=== PATIENT | female | born 1950 | race Caucasian/White ===

== ENCOUNTER 2019-06-05 06:29 | Emergency (ER) | payer MEDICARE, SELFPAY ==
[2019-06-05 06:37] VITALS: BP 150/80; PULSE 74; RESP 18; TEMP 36.6; O2SAT 99
[2019-06-05] MEDS: SODIUM CHLORIDE 0.9% 1,000 ML 1000 ML IV (06:55)
[2019-06-05] MEDS: ONDANSETRON 4 MG/2 ML INJ IV (06:56)
--- NOTE | 2019-06-05 06:56 | DI.US.S_ITS ---
PROCEDURE: US ABDOMEN LIMITED INDICATIONS: PAIN TECHNIQUE: Real-time focused scanning was performed of the right upper quadrant of the abdomen, with image documentation. COMPARISON: None. FINDINGS: Numerous small mobile gallstones. There is no gallbladder wall thickening or fluid around the gallbladder or sonographic Haile sign. There are 2 focal echogenic lesions in the liver, likely representing hemangiomas. In the right lobe is a 2.7 cm maximum diameter lesion. In the left lobe is a 2.1 x 1.6 x 3.0 cm echogenic lesion. Visualized portions of the pancreas are unremarkable. Common bile duct is nondilated, measuring 5 mm. IMPRESSION: 1. Cholelithiasis. 2. Probable liver hemangiomata. Dictated by: Venancio Gary M.D. on 06/05/2019 at 8:24 Approved by: Venancio Gary M.D. on 06/05/2019 at 8:26
[2019-06-05 06:59] LABS: Hematocrit 43.3 % (36-46); Hemoglobin 14.7 g/dL (12.0-16.0); Mean Corpuscular Hemoglobin 33.2 PG (26-34); Mean Corpuscular Volume 97.5 fL (80-100); Platelet Count 315 X10^3/uL (150-400); Red Blood Cell Count 4.44 X10^6/uL (4.0-5.2); Red Cell Distribution Width 13.1 % (11.6-14.8); White Blood Cell Count 7.8 X10^3/uL (4.5-11.0)
--- NOTE | 2019-06-05 06:59 | ED.ABDPAIN ---
HPI - Abdominal Pain <Marcia Ortiz MD - Last Filed: 06/08/19 17:28> General Chief Complaint: Abdominal Pain Stated Complaint: VOMITING STOMACH PAIN Time Seen by Provider: 06/05/19 06:47 Source: patient Mode of arrival: ambulatory Limitations: no limitations History of Present Illness HPI narrative: Patient presents emergency department complaining of upper abdominal pain that started last night around 2300. Patient states it did start a couple of hours after eating a meal. Patient had had an episode of watery diarrhea earlier that afternoon, but had otherwise felt okay. She states that after the abdominal pain began, she began to feel nauseated and shortly thereafter began vomiting. Patient states that she vomited a number of times, and till her stomach was empty. She states she still feels nauseated, to the point that she has been putting her fingers down her throat to try to make herself vomit so she can feel better. However, she states she has not had any further vomiting for the last couple of hours. Patient states the pain is located in her epigastrium and slightly to the left and right side as well. She states that she had 1 other pair of episodes like this about 8 years ago, at which time she was admitted to the hospital and worked up with laboratory studies and upper abdominal ultrasound, all of which were unremarkable. Patient states she has not had any other episodes of this character leading up to today. She states her only abdominal surgeries have been and a hysterectomy in which her ovaries were left. Patient denies any blood in her stool or vomit. No dysuria. She has no history of peptic ulcer disease. Patient denies chest pain, shortness of breath, or cough. She states it does hurt in her upper abdomen when she takes deep breath. Patient denies any fevers. No other complaints at this time. Related Data Previous Rx's Medication Instructions Recorded ondansetron 4 mg PO Q6H PRN #20 tab 06/05/19 ranitidine HCl [Zantac] 150 mg PO BID PRN #60 tab 06/05/19 tramadol [Ultram] 50 mg PO BID PRN #14 tab 06/05/19 Allergies Allergy/AdvReac Type Severity Reaction Status Date / Time No Known Drug Allergies Allergy Verified 06/05/19 08:21 Review of Systems <Marcia Ortiz MD - Last Filed: 06/08/19 17:28> Constitutional Denies chills, Denies fever(s), Denies lethargy and Denies weakness Eyes Denies change in vision, Denies eye discharge, Denies irritation and Denies loss of vision ENT Ears, Nose, Mouth, and Throat: Denies change in voice, Denies neck pain and Denies sore throat Cardiovascular Denies chest pain, Denies irregular heart rhythm, Denies lightheadedness, Denies palpitations, Denies dyspnea, Denies dyspnea on exertion and Denies orthopnea Respiratory Denies cough, Denies dyspnea, Denies dyspnea on exertion and Denies wheezing Gastrointestinal Gastrointestinal: Reports abdominal pain, Denies change in bowel habits, Reports diarrhea, Reports nausea and Reports vomiting Genitourinary Denies hematuria, Denies flank pain, Denies urinary incontinence and Denies urinary urgency Musculoskeletal Denies neck pain Integumentary/Breasts Denies pruritus, Denies erythema, Denies rash and Denies wounds Neurologic Denies confusion, Denies loss of vision and Denies weakness Psychiatric Denies anxiety, Denies confusion, Denies depression, Denies homicidal ideation and Denies suicidal ideation Endocrine Denies palpitations Hematologic/Lymphatic Denies easy bruising Allergic/Immunologic Denies wheezing PFSH <Marcia Ortiz MD - Last Filed: 06/08/19 17:28> Medical History Anxiety (Acute) Surgical History No pertinent past surgical history (Acute) Social History Smoking Status: Former smoker Social History Smoking Status: Former smoker Exam <Marcia Ortiz MD - Last Filed: 06/08/19 17:28> Initial Vital Signs Initial Vital Signs: Vital Signs Temperature 98 F 06/05/19 06:37 Pulse Rate 74 06/05/19 06:37 Respiratory Rate 18 06/05/19 06:37 Blood Pressure 150/80 H 06/05/19 06:37 Pulse Oximetry 99 06/05/19 06:37 Const General: cooperative and well developed Nutritional Appearance: well nourished Orientation: alert, awake, oriented x3 and not confused Other: Patient is slightly diaphoretic and appears uncomfortable, holding her abdomen, grimacing, and shifting position frequently. [facility] Head: normocephalic and atraumatic Ears: external ears normal Nose: external nose normal and No nasal discharge Face and sinus: face symmetric and No dry mucous membranes Mouth: oral mucosae normal and moist mucous membranes Teeth and gingiva: dentition normal Eyes General: appearance normal, both eyes and all related structures Eyelids: eyelids normal Conjunctivae: conjunctivae normal Sclera: sclerae normal Pupils: PERRL EOM: EOM intact bilaterally Neck Neck: normal visual inspection, trachea midline, No lymphadenopathy, No midline deformity and No JVD Lymphatic: No lymphedema Chest Chest: normal inspection of the chest Resp Effort & Inspection: normal respiratory effort, able to speak in complete sentences, no respiratory distress and no use of accessory muscles Auscultation: clear to auscultation bilaterally, no rales, no rhonchi and no wheezes Cardio Rate: regular rate Rhythm: regular rhythm Heart Sounds: no click, no gallops, no murmurs and no rubs Pulses: normal peripheral pulses GI Inspection: non-distended Palpation: soft, no hepatosplenomegaly, No guarding, No pulsatile mass and tender (Mild, epigastrium; states makes her feel more nauseated.) Back/Spine/Pelvis Back: No CVA tenderness Cervical Spine: cervical ROM normal and No pain with cervical ROM Thoracic/Lumbar Spine: thoracic and lumbar spine normal to inspection Skin General: no rashes or lesions noted, No jaundice and No petechiae Other: Mild diaphoresis. Neuro General: alert, oriented x3, gait normal and no focal motor deficits Speech: speech normal Extrem General: full ROM, no clubbing, cyanosis or edema, no pedal edema and no calf tenderness Psych Appearance: well kempt Mental Status: mental status grossly normal Attitude: cooperative Thought Content: normal and suicidality Judgment: judgment good <Roverto Díaz DO - Last Filed: 06/05/19 09:38> Initial Vital Signs Initial Vital Signs: Vital Signs Temperature 98 F 06/05/19 06:37 Pulse Rate 74 06/05/19 06:37 Respiratory Rate 18 06/05/19 06:37 Blood Pressure 150/80 H 06/05/19 06:37 Pulse Oximetry 99 06/05/19 06:37 Course <Marcia Ortiz MD - Last Filed: 06/08/19 17:28> Course Narrative: Patient was worked up with laboratory studies and ultrasound of the abdomen, and treated with IV fluids, Zofran, and Dilaudid. She was signed out to Dr. Roverto Díaz at change of shift, pending diagnostic workup and re-evaluation after symptomatic treatment. Orders Ordered: Discontinued Medications Hydromorphone HCl (Dilaudid) 0.5 mg IV NOW ONE Stop: 06/05/19 06:57 Last Admin: 06/05/19 07:07 Dose: 0.5 mg Hydromorphone HCl (Dilaudid) 1 mg IV NOW ONE Stop: 06/05/19 08:48 Last Admin: 06/05/19 09:11 Dose: 1 mg Sodium Chloride (Normal Saline 0.9%) 1,000 mls @ 1,000 mls/hr IV BOLUS ONE Stop: 06/05/19 07:48 Last Infusion: 06/05/19 08:00 Dose: 0 mls/hr Admin: 06/05/19 06:55 Dose: 1,000 mls/hr Ketorolac Tromethamine (Toradol) 15 mg IV NOW ONE Stop: 06/05/19 08:19 Last Admin: 06/05/19 08:23 Dose: 15 mg Metoclopramide HCl (Reglan) 10 mg IV NOW ONE Stop: 06/05/19 07:45 Last Admin: 06/05/19 07:53 Dose: 10 mg Ondansetron HCl (Zofran) 4 mg IV NOW ONE Stop: 06/05/19 06:51 Last Admin: 06/05/19 06:56 Dose: 4 mg Pantoprazole Sodium (Protonix) 40 mg IV NOW ONE Stop: 06/05/19 07:45 Last Admin: 06/05/19 07:53 Dose: 40 mg Vital Signs - 8 hr 06/05/19 06:37 06/05/19 07:10 Temperature 98 F Pulse Rate 74 76 Respiratory Rate 18 22 Blood Pressure 150/80 H Pulse Oximetry 99 100 <Roverto Díaz DO - Last Filed: 06/05/19 09:38> Orders Ordered: Discontinued Medications Hydromorphone HCl (Dilaudid) 0.5 mg IV NOW ONE Stop: 06/05/19 06:57 Last Admin: 06/05/19 07:07 Dose: 0.5 mg Hydromorphone HCl (Dilaudid) 1 mg IV NOW ONE Stop: 06/05/19 08:48 Last Admin: 06/05/19 09:11 Dose: 1 mg Sodium Chloride (Normal Saline 0.9%) 1,000 mls @ 1,000 mls/hr IV BOLUS ONE Stop: 06/05/19 07:48 Last Infusion: 06/05/19 08:00 Dose: 0 mls/hr Admin: 06/05/19 06:55 Dose: 1,000 mls/hr Ketorolac Tromethamine (Toradol) 15 mg IV NOW ONE Stop: 06/05/19 08:19 Last Admin: 06/05/19 08:23 Dose: 15 mg Metoclopramide HCl (Reglan) 10 mg IV NOW ONE Stop: 06/05/19 07:45 Last Admin: 06/05/19 07:53 Dose: 10 mg Ondansetron HCl (Zofran) 4 mg IV NOW ONE Stop: 06/05/19 06:51 Last Admin: 06/05/19 06:56 Dose: 4 mg Pantoprazole Sodium (Protonix) 40 mg IV NOW ONE Stop: 06/05/19 07:45 Last Admin: 06/05/19 07:53 Dose: 40 mg Vital Signs - 8 hr 06/05/19 06:37 06/05/19 07:10 Temperature 98 F Pulse Rate 74 76 Respiratory Rate 18 22 Blood Pressure 150/80 H Pulse Oximetry 99 100 MDM - Abdominal Pain <Marcia Ortiz MD - Last Filed: 06/08/19 17:28> Lab Data Result diagrams: 06/05/19 06:14 06/05/19 06:14 Lab Results 06/05/19 06/05/19 06/05/19 Range/Units 06:14 06:14 06:40 WBC 7.8 (4.5-11.0) X10^3/uL RBC 4.44 (4.0-5.2) X10^6/uL Hgb 14.7 (12.0-16.0) g/dL Hct 43.3 (36-46) % MCV 97.5 (80-100) fL MCH 33.2 (26-34) PG MCHC 34.0 (30-36) % RDW 13.1 (11.6-14.8) % Plt Count 315 (150-400) X10^3/uL Total Counted 100 Seg Neutrophils % 78.0 H (38-70) % Band Neutrophils % 2.0 L (3-7) % Lymphocytes % (Manual) 17.0 L (25-45) % Atypical Lymphs % 1.0 H ( - 0) % Monocytes % (Manual) 2.0 (2-11) % Neutrophils # (Manual) 6240 H (6549-5290) /uL RBC Morphology Normal morphology Sodium 139 (137-145) mmol/L Potassium 3.6 (3.4-5.1) mmol/L Chloride 98 (98-107) mmol/L Carbon Dioxide 23 (22-32) mmol/L BUN 12 (7-17) mg/dL Creatinine 0.60 (0.52-1.04) mg/dL Estimated GFR > 60.0 (>60) mL/min BUN/Creatinine Ratio 20.0 (6-22) Glucose 220 H (80-110) mg/dL Calcium 9.6 (8.4-10.2) mg/dL Total Bilirubin 0.4 (0.2-1.3) mg/dL AST 24 (14-36) IU/L ALT 18 (9-52) IU/L Alkaline Phosphatase 68 (38-126) U/L Troponin I (0.01-0.034) ng/mL Total Protein 8.1 (6.3-8.2) g/dL Albumin 4.9 (3.5-5.0) g/dL Globulin 3.2 (1.7-4.1) g/dL Albumin/Globulin Ratio 1.5 (1.0-2.8) Lipase 73 (23-300) U/L /15/ Range/Units 06:40 WBC (4.5-11.0) X10^3/uL RBC (4.0-5.2) X10^6/uL Hgb (12.0-16.0) g/dL Hct (36-46) % MCV (80-100) fL MCH (26-34) PG MCHC (30-36) % RDW (11.6-14.8) % Plt Count (150-400) X10^3/uL Total Counted Seg Neutrophils % (38-70) % Band Neutrophils % (3-7) % Lymphocytes % (Manual) (25-45) % Atypical Lymphs % ( - 0) % Monocytes % (Manual) (2-11) % Neutrophils # (Manual) (2437-9393) /uL RBC Morphology Sodium (137-145) mmol/L Potassium (3.4-5.1) mmol/L Chloride (98-107) mmol/L Carbon Dioxide (22-32) mmol/L BUN (7-17) mg/dL Creatinine (0.52-1.04) mg/dL Estimated GFR (>60) mL/min BUN/Creatinine Ratio (6-22) Glucose (80-110) mg/dL Calcium (8.4-10.2) mg/dL Total Bilirubin (0.2-1.3) mg/dL AST (14-36) IU/L ALT (9-52) IU/L Alkaline Phosphatase (38-126) U/L Troponin I < 0.012 (0.01-0.034) ng/mL Total Protein (6.3-8.2) g/dL Albumin (3.5-5.0) g/dL Globulin (1.7-4.1) g/dL Albumin/Globulin Ratio (1.0-2.8) Lipase (23-300) U/L <Roverto Díaz, DO - Last Filed: 06/05/19 09:38> Lab Data Lab Results 06/05/19 06/05/19 06/05/19 Range/Units 06:14 06:14 06:40 WBC 7.8 (4.5-11.0) X10^3/uL RBC 4.44 (4.0-5.2) X10^6/uL Hgb 14.7 (12.0-16.0) g/dL Hct 43.3 (36-46) % MCV 97.5 (80-100) fL MCH 33.2 (26-34) PG MCHC 34.0 (30-36) % RDW 13.1 (11.6-14.8) % Plt Count 315 (150-400) X10^3/uL Total Counted 100 Seg Neutrophils % 78.0 H (38-70) % Band Neutrophils % 2.0 L (3-7) % Lymphocytes % (Manual) 17.0 L (25-45) % Atypical Lymphs % 1.0 H ( - 0) % Monocytes % (Manual) 2.0 (2-11) % Neutrophils # (Manual) 6240 H (8848-4510) /uL RBC Morphology Normal morphology Sodium 139 (137-145) mmol/L Potassium 3.6 (3.4-5.1) mmol/L Chloride 98 (98-107) mmol/L Carbon Dioxide 23 (22-32) mmol/L BUN 12 (7-17) mg/dL Creatinine 0.60 (0.52-1.04) mg/dL Estimated GFR > 60.0 (>60) mL/min BUN/Creatinine Ratio 20.0 (6-22) Glucose 220 H (80-110) mg/dL Calcium 9.6 (8.4-10.2) mg/dL Total Bilirubin 0.4 (0.2-1.3) mg/dL AST 24 (14-36) IU/L ALT 18 (9-52) IU/L Alkaline Phosphatase 68 (38-126) U/L Troponin I (0.01-0.034) ng/mL Total Protein 8.1 (6.3-8.2) g/dL Albumin 4.9 (3.5-5.0) g/dL Globulin 3.2 (1.7-4.1) g/dL Albumin/Globulin Ratio 1.5 (1.0-2.8) Lipase 73 (23-300) U/L // Range/Units 06:40 WBC (4.5-11.0) X10^3/uL RBC (4.0-5.2) X10^6/uL Hgb (12.0-16.0) g/dL Hct (36-46) % MCV (80-100) fL MCH (26-34) PG MCHC (30-36) % RDW (11.6-14.8) % Plt Count (150-400) X10^3/uL Total Counted Seg Neutrophils % (38-70) % Band Neutrophils % (3-7) % Lymphocytes % (Manual) (25-45) % Atypical Lymphs % ( - 0) % Monocytes % (Manual) (2-11) % Neutrophils # (Manual) (1862-6596) /uL RBC Morphology Sodium (137-145) mmol/L Potassium (3.4-5.1) mmol/L Chloride (98-107) mmol/L Carbon Dioxide (22-32) mmol/L BUN (7-17) mg/dL Creatinine (0.52-1.04) mg/dL Estimated GFR (>60) mL/min BUN/Creatinine Ratio (6-22) Glucose (80-110) mg/dL Calcium (8.4-10.2) mg/dL Total Bilirubin (0.2-1.3) mg/dL AST (14-36) IU/L ALT (9-52) IU/L Alkaline Phosphatase (38-126) U/L Troponin I < 0.012 (0.01-0.034) ng/mL Total Protein (6.3-8.2) g/dL Albumin (3.5-5.0) g/dL Globulin (1.7-4.1) g/dL Albumin/Globulin Ratio (1.0-2.8) Lipase (23-300) U/L Imaging Data US - abdomen: Radiologist's impression: [address] [address] Ultrasound Report Signed Patient: Breanna Armstrong#: [id number] : 2Acct:[id number] Age/Sex: 68 / FDate of Service: 06/05/19 Loc: ED Accession Number: [id number] Procedure: US abdomen limited Ordering Provider: Marcia Ortiz MD PROCEDURE: US ABDOMEN LIMITED INDICATIONS: PAIN TECHNIQUE: Real-time focused scanning was performed of the right upper quadrant of the abdomen, with image documentation. COMPARISON: None. FINDINGS: Numerous small mobile gallstones. There is no gallbladder wall thickening or fluid around the gallbladder or sonographic Haile sign. There are 2 focal echogenic lesions in the liver, likely representing hemangiomas. In the right lobe is a 2.7 cm maximum diameter lesion. In the left lobe is a 2.1 x 1.6 x 3.0 cm echogenic lesion. Visualized portions of the pancreas are unremarkable. Common bile duct is nondilated, measuring 5 mm. IMPRESSION: 1. Cholelithiasis. 2. Probable liver hemangiomata. Dictated by: Venancio Gary M.D. on 06/05/2019 at 8:24 Approved by: Venancio Gary M.D. on 06/05/2019 at 8:26 CT scan - abdomen: Radiologist's impression: [address] [id number] [address] Scan Report Signed Patient: Breanna Armstrong#: [id number] : 2Acct:[id number] Age/Sex: 68 / FDate of Service: 06/05/19 Loc: ED Accession Number: [id number] Procedure: CT abdomen pelvis w con Ordering Provider: Roverto Díaz D.O. PROCEDURE: CT ABDOMEN PELVIS W CON INDICATIONS: epigastric pain, right TECHNIQUE: After the administration of intravenous contrast, 5 mm thick sections acquired from the diaphragm to the symphysis. 5 mm coronal and sagittal reformats were acquired. For radiation dose reduction, the following was used: automated exposure control, adjustment of mA and/or kV according to patient size. COMPARISON: [facility], , ABDOMEN LIMITED, 06/05/2019, 7:08. FINDINGS: Image quality: Excellent. ABDOMEN: Lung bases: Lung bases are clear. Heart size is normal. Small hiatal hernia. Distal esophageal wall thickening may represent esophagitis. Solid organs: The 2 lesions described on the ultrasound and liver have peripheral nodular enhancement and are consistent with hemangiomata. The left lobe liver lesion measures approximately 3 cm in maximum diameter. The right lobe liver lesion measures approximately 3.2 cm in diameter. There are other tiny low-density lesions which are consistent with cysts versus hemangiomata. Gallbladder contains tiny stones. There is no gallbladder wall thickening or fluid around the gallbladder.. Biliary system is non dilated. Pancreas enhances normally. Spleen is normal in size and enhancement. No adrenal nodules. Kidneys demonstrate normal size and enhancement, without hydronephrosis. Peritoneum and bowel: Bowel loops demonstrate normal wall thickness and caliber. No free fluid or air. Nodes and vessels: No retroperitoneal or mesenteric adenopathy by size criteria. Aorta and inferior vena cava are normal in size. Miscellaneous: No ventral hernias. PELVIS: Genitourinary: Bladder wall thickness is normal. No hysterectomy. Miscellaneous: No inguinal hernias or adenopathy. Bones: No suspicious bony lesions. No vertebral body compression fractures. IMPRESSION: 1. The 2 lesions seen on previous ultrasound are hemangiomata. 2. Tiny gallstones. 3. Small hiatal hernia. 4. Question distal esophagitis. 5. Remote history Dictated by: Venancio Gary M.D. on 06/05/2019 at 8:32 Approved by: Venancio Gary M.D. on 06/05/2019 at 8:36 ECG Data Attestation: I personally reviewed and interpreted this ECG as follows: Prior ECG tracings: not available for review Interpretation: Sinus rhythm Ventricular rate is 69 Left axis deviation Normal QRS Nonspecific ST T wave changes MDM Narrative Medical decision making narrative: Received turned over from night provider. Right upper quadrant ultrasound does show cholelithiasis but no signs of cholecystitis. She was still quite a bit nauseous and pain after the medications. A CT scan was ordered which just shows inflammation the distal esophagus. No other signs of acute pathology. She was given another dose of pain medications which he states completely resolved her symptoms. No indication for antibiotics. No indication for surgical referral. We did discuss return precautions and follow-up instructions. Will send home with symptom treatment. Patient and expressed understanding and agreement with plan. Discharge Plan Departure Patient Disposition: Home Clinical Impression: Abdominal pain Qualifiers: Abdominal location: epigastric Qualified Code(s): R10.13 - Epigastric pain Nausea and vomiting Qualifiers: Vomiting type: unspecified Vomiting Intractability: unspecified Qualified Code(s): R11.2 - Nausea with vomiting, unspecified Discharge Date/Time: 06/05/19 09:49 Interventions: ED Discharge Assessment Last Done: 06/05/19 09:48 Instructions: Acute Abdominal Pain Activity Restrictions/Additional Instructions: I do recommend that today you contact your primary provider to discuss the referrals and indications to have a endoscopy and colonoscopy. Take the medications as directed. Increase your fluid intake and eat a bland diet for the next couple days. Return to the emergency department for any new or worsening symptoms Prescriptions: New tramadol [Ultram] 50 mg tablet 50 mg PO BID PRN (Reason: pain) Qty: 14 RF: 0 ranitidine HCl [Zantac] 150 mg tablet 150 mg PO BID PRN (Reason: abdominal discomfort) Qty: 60 RF: 0 ondansetron 4 mg tablet,disintegrating 4 mg PO Q6H PRN (Reason: nausea and vomiting) Qty: 20 RF: 0
--- NOTE | 2019-06-05 07:04 | ED_ITS ---
HPI - Abdominal Pain <Marcia Ortiz MD - Last Filed: 06/08/19 17:28> General Chief Complaint: Abdominal Pain Stated Complaint: VOMITING STOMACH PAIN Time Seen by Provider: 06/05/19 06:47 Source: patient Mode of arrival: ambulatory Limitations: no limitations History of Present Illness HPI narrative: Patient presents emergency department complaining of upper abdominal pain that started last night around 2300. Patient states it did start a couple of hours after eating a meal. Patient had had an episode of watery diarrhea earlier that afternoon, but had otherwise felt okay. She states that after the abdominal pain began, she began to feel nauseated and shortly thereafter began vomiting. Patient states that she vomited a number of times, and till her stomach was empty. She states she still feels nauseated, to the point that she has been putting her fingers down her throat to try to make herself vomit so she can feel better. However, she states she has not had any further vomiting for the last couple of hours. Patient states the pain is located in her epigastrium and slightly to the left and right side as well. She states that she had 1 other pair of episodes like this about 8 years ago, at which time she was admitted to the hospital and worked up with laboratory studi es and upper abdominal ultrasound, all of which were unremarkable. Patient states she has not had any other episodes of this character leading up to today. She states her only abdominal surgeries have been and a hysterectomy in which her ovaries were left. Patient denies any blood in her stool or vomit. No dysuria. She has no history of peptic ulcer disease. Patient denies chest pain, shortness of breath, or cough. She states it does hurt in her upper abdomen when she takes deep breath. Patient denies any fevers. No other complaints at this time. Related Data Previous Rx's Medication Instructions Recorded ondansetron 4 mg PO Q6H PRN #20 tab 06/05/19 ranitidine HCl [Zantac] 150 mg PO BID PRN #60 tab 06/05/19 tramadol [Ultram] 50 mg PO BID PRN #14 tab 06/05/19 Allergies Allergy/AdvReac Type Severity Reaction Status Date / Time No Known Drug Allergies Allergy Verified 06/05/19 08:21 Review of Systems <Marcia Ortiz MD - Last Filed: 06/08/19 17:28> Constitutional Denies chills, Denies fever(s), Denies lethargy and Denies weakness Eyes Denies change in vision, Denies eye discharge, Denies irritation and Denies loss of vision ENT Ears, Nose, Mouth, and Throat: Denies change in voice, Denies neck pain and Denies sore throat Cardiovascular Denies chest pain, Denies irregular heart rhythm, Denies lightheadedness, Denies palpitations, Denies dyspnea, Denies dyspnea on exertion and Denies orthopnea Respiratory Denies cough, Denies dyspnea, Denies dyspnea on exertion and Denies wheezing Gastrointestinal Gastrointestinal: Reports abdominal pain, Denies change in bowel habits, Reports diarrhea, Reports nausea and Reports vomiting Genitourinary Denies hematuria, Denies flank pain, Denies urinary incontinence and Denies urinary urgency Musculoskeletal Denies neck pain Integumentary/Breasts Denies pruritus, Denies erythema, Denies rash and Denies wounds Neurologic Denies confusion, Denies loss of vision and Denies weakness Psychiatric Denies anxiety, Denies confusion, Denies depression, Denies homicidal ideation and Denies suicidal ideation Endocrine Denies palpitations Hematologic/Lymphatic Denies easy bruising Allergic/Immunologic Denies wheezing PFSH <Marcia Ortiz MD - Last Filed: 06/08/19 17:28> Medical History Anxiety (Acute) Surgical History No pertinent past surgical history (Acute) Social History Smoking Status: Former smoker Social History Smoking Status: Former smoker Exam <Marcia Ortiz MD - Last Filed: 06/08/19 17:28> Initial Vital Signs Initial Vital Signs: Vital Signs Temperature 98 F 06/05/19 06:37 Pulse Rate 74 06/05/19 06:37 Respiratory Rate 18 06/05/19 06:37 Blood Pressure 150/80 H 06/05/19 06:37 Pulse Oximetry 99 06/05/19 06:37 Const General: cooperative and well developed Nutritional Appearance: well nourished Orientation: alert, awake, oriented x3 and not confused Other: Patient is slightly diaphoretic and appears uncomfortable, holding her abdomen, grimacing, and shifting position frequently. [facility] Head: normocephalic and atraumatic Ears: external ears normal Nose: external nose normal and No nasal discharge Face and sinus: face symmetric and No dry mucous membranes Mouth: oral mucosae normal and moist mucous membranes Teeth and gingiva: dentition normal Eyes General: appearance normal, both eyes and all related structures Eyelids: eyelids normal Conjunctivae: conjunctivae normal Sclera: sclerae normal Pupils: PERRL EOM: EOM intact bilaterally Neck Neck: normal visual inspection, trachea midline, No lymphadenopathy, No midline deformity and No JVD Lymphatic: No lymphedema Chest Chest: normal inspection of the chest Resp Effort & Inspection: normal respiratory effort, able to speak in complete sentences, no respiratory distress and no use of accessory muscles Auscultation: clear to auscultation bilaterally, no rales, no rhonchi and no wheezes Cardio Rate: regular rate Rhythm: regular rhythm Heart Sounds: no click, no gallops, no murmurs and no rubs Pulses: normal peripheral pulses GI Inspection: non-distended Palpation: soft, no hepatosplenomegaly, No guarding, No pulsatile mass and tender (Mild, epigastrium; states makes her feel more nauseated.) Back/Spine/Pelvis Back: No CVA tenderness Cervical Spine: cervical ROM normal and No pain with cervical ROM Thoracic/Lumbar Spine: thoracic and lumbar spine normal to inspection Skin General: no rashes or lesions noted, No jaundice and No petechiae Other: Mild diaphoresis. Neuro General: alert, oriented x3, gait normal and no focal motor deficits Speech: speech normal Extrem General: full ROM, no clubbing, cyanosis or edema, no pedal edema and no calf tenderness Psych Appearance: well kempt Mental Status: mental status grossly normal Attitude: cooperative Thought Content: normal and suicidality Judgment: judgment good <Roverto Díaz DO - Last Filed: 06/05/19 09:38> Initial Vital Signs Initial Vital Signs: Vital Signs Temperature 98 F 06/05/19 06:37 Pulse Rate 74 06/05/19 06:37 Respiratory Rate 18 06/05/19 06:37 Blood Pressure 150/80 H 06/05/19 06:37 Pulse Oximetry 99 06/05/19 06:37 Course <Marcia Ortiz MD - Last Filed: 06/08/19 17:28> Course Narrative: Patient was worked up with laboratory studies and ultrasound of the abdomen, and treated with IV fluids, Zofran, and Dilaudid. She was signed out to Dr. Roverto Díaz at change of shift, pending diagnostic workup and re-evaluation after symptomatic treatment. Orders Ordered: Discontinued Medications Hydromorphone HCl (Dilaudid) 0.5 mg IV NOW ONE Stop: 06/05/19 06:57 Last Admin: 06/05/19 07:07 Dose: 0.5 mg Hydromorphone HCl (Dilaudid) 1 mg IV NOW ONE Stop: 06/05/19 08:48 Last Admin: 06/05/19 09:11 Dose: 1 mg Sodium Chloride (Normal Saline 0.9%) 1,000 mls @ 1,000 mls/hr IV BOLUS ONE Stop: 06/05/19 07:48 Last Infusion: 06/05/19 08:00 Dose: 0 mls/hr Admin: 06/05/19 06:55 Dose: 1,000 mls/hr Ketorolac Tromethamine (Toradol) 15 mg IV NOW ONE Stop: 06/05/19 08:19 Last Admin: 06/05/19 08:23 Dose: 15 mg Metoclopramide HCl (Reglan) 10 mg IV NOW ONE Stop: 06/05/19 07:45 Last Admin: 06/05/19 07:53 Dose: 10 mg Ondansetron HCl (Zofran) 4 mg IV NOW ONE Stop: 06/05/19 06:51 Last Admin: 06/05/19 06:56 Dose: 4 mg Pantoprazole Sodium (Protonix) 40 mg IV NOW ONE Stop: 06/05/19 07:45 Last Admin: 06/05/19 07:53 Dose: 40 mg Vital Signs - 8 hr 06/05/19 06:37 06/05/19 07:10 Temperature 98 F Pulse Rate 74 76 Respiratory Rate 18 22 Blood Pressure 150/80 H Pulse Oximetry 99 100 <Roverto Díaz DO - Last Filed: 06/05/19 09:38> Orders Ordered: Discontinued Medications Hydromorphone HCl (Dilaudid) 0.5 mg IV NOW ONE Stop: 06/05/19 06:57 Last Admin: 06/05/19 07:07 Dose: 0.5 mg Hydromorphone HCl (Dilaudid) 1 mg IV NOW ONE Stop: 06/05/19 08:48 Last Admin: 06/05/19 09:11 Dose: 1 mg Sodium Chloride (Normal Saline 0.9%) 1,000 mls @ 1,000 mls/hr IV BOLUS ONE Stop: 06/05/19 07:48 Last Infusion: 06/05/19 08:00 Dose: 0 mls/hr Admin: 06/05/19 06:55 Dose: 1,000 mls/hr Ketorolac Tromethamine (Toradol) 15 mg IV NOW ONE Stop: 06/05/19 08:19 Last Admin: 06/05/19 08:23 Dose: 15 mg Metoclopramide HCl (Reglan) 10 mg IV NOW ONE Stop: 06/05/19 07:45 Last Admin: 06/05/19 07:53 Dose: 10 mg Ondansetron HCl (Zofran) 4 mg IV NOW ONE Stop: 06/05/19 06:51 Last Admin: 06/05/19 06:56 Dose: 4 mg Pantoprazole Sodium (Protonix) 40 mg IV NOW ONE Stop: 06/05/19 07:45 Last Admin: 06/05/19 07:53 Dose: 40 mg Vital Signs - 8 hr 06/05/19 06:37 06/05/19 07:10 Temperature 98 F Pulse Rate 74 76 Respiratory Rate 18 22 Blood Pressure 150/80 H Pulse Oximetry 99 100 MDM - Abdominal Pain <Marcia Ortiz MD - Last Filed: 06/08/19 17:28> Lab Data Result diagrams: 06/05/19 06:14 06/05/19 06:14 Lab Results 06/05/19 06/05/19 06/05/19 Range/Units 06:14 06:14 06:40 WBC 7.8 (4.5-11.0) X10^3/uL RBC 4.44 (4.0-5.2) X10^6/uL Hgb 14.7 (12.0-16.0) g/dL Hct 43.3 (36-46) % MCV 97.5 (80-100) fL MCH 33.2 (26-34) PG MCHC 34.0 (30-36) % RDW 13.1 (11.6-14.8) % Plt Count 315 (150-400) X10^3/uL Total Counted 100 Seg Neutrophils % 78.0 H (38-70) % Band Neutrophils % 2.0 L (3-7) % Lymphocytes % (Manual) 17.0 L (25-45) % Atypical Lymphs % 1.0 H ( - 0) % Monocytes % (Manual) 2.0 (2-11) % Neutrophils # (Manual) 6240 H (4006-4341) /uL RBC Morphology Normal morphology Sodium 139 (137-145) mmol/L Potassium 3.6 (3.4-5.1) mmol/L Chloride 98 (98-107) mmol/L Carbon Dioxide 23 (22-32) mmol/L BUN 12 (7-17) mg/dL Creatinine 0.60 (0.52-1.04) mg/dL Estimated GFR > 60.0 (>60) mL/min BUN/Creatinine Ratio 20.0 (6-22) Glucose 220 H (80-110) mg/dL Calcium 9.6 (8.4-10.2) mg/dL Total Bilirubin 0.4 (0.2-1.3) mg/dL AST 24 (14-36) IU/L ALT 18 (9-52) IU/L Alkaline Phosphatase 68 (38-126) U/L Troponin I (0.01-0.034) ng/mL Total Protein 8.1 (6.3-8.2) g/dL Albumin 4.9 (3.5-5.0) g/dL Globulin 3.2 (1.7-4.1) g/dL Albumin/Globulin Ratio 1.5 (1.0-2.8) Lipase 73 (23-300) U/L /15/ Range/Units 06:40 WBC (4.5-11.0) X10^3/uL RBC (4.0-5.2) X10^6/uL Hgb (12.0-16.0) g/dL Hct (36-46) % MCV (80-100) fL MCH (26-34) PG MCHC (30-36) % RDW (11.6-14.8) % Plt Count (150-400) X10^3/uL Total Counted Seg Neutrophils % (38-70) % Band Neutrophils % (3-7) % Lymphocytes % (Manual) (25-45) % Atypical Lymphs % ( - 0) % Monocytes % (Manual) (2-11) % Neutrophils # (Manual) (2152-2710) /uL RBC Morphology Sodium (137-145) mmol/L Potassium (3.4-5.1) mmol/L Chloride (98-107) mmol/L Carbon Dioxide (22-32) mmol/L BUN (7-17) mg/dL Creatinine (0.52-1.04) mg/dL Estimated GFR (>60) mL/min BUN/Creatinine Ratio (6-22) Glucose (80-110) mg/dL Calcium (8.4-10.2) mg/dL Total Bilirubin (0.2-1.3) mg/dL AST (14-36) IU/L ALT (9-52) IU/L Alkaline Phosphatase (38-126) U/L Troponin I < 0.012 (0.01-0.034) ng/mL Total Protein (6.3-8.2) g/dL Albumin (3.5-5.0) g/dL Globulin (1.7-4.1) g/dL Albumin/Globulin Ratio (1.0-2.8) Lipase (23-300) U/L <Roverto Díaz DO - Last Filed: 06/05/19 09:38> Lab Data Lab Results 06/05/19 06/05/19 06/05/19 Range/Units 06:14 06:14 06:40 WBC 7.8 (4.5-11.0) X10^3/uL RBC 4.44 (4.0-5.2) X10^6/uL Hgb 14.7 (12.0-16.0) g/dL Hct 43.3 (36-46) % MCV 97.5 (80-100) fL MCH 33.2 (26-34) PG MCHC 34.0 (30-36) % RDW 13.1 (11.6-14.8) % Plt Count 315 (150-400) X10^3/uL Total Counted 100 Seg Neutrophils % 78.0 H (38-70) % Band Neutrophils % 2.0 L (3-7) % Lymphocytes % (Manual) 17.0 L (25-45) % Atypical Lymphs % 1.0 H ( - 0) % Monocytes % (Manual) 2.0 (2-11) % Neutrophils # (Manual) 6240 H (9512-8229) /uL RBC Morphology Normal morphology Sodium 139 (137-145) mmol/L Potassium 3.6 (3.4-5.1) mmol/L Chloride 98 (98-107) mmol/L Carbon Dioxide 23 (22-32) mmol/L BUN 12 (7-17) mg/dL Creatinine 0.60 (0.52-1.04) mg/dL Estimated GFR > 60.0 (>60) mL/min BUN/Creatinine Ratio 20.0 (6-22) Glucose 220 H (80-110) mg/dL Calcium 9.6 (8.4-10.2) mg/dL Total Bilirubin 0.4 (0.2-1.3) mg/dL AST 24 (14-36) IU/L ALT 18 (9-52) IU/L Alkaline Phosphatase 68 (38-126) U/L Troponin I (0.01-0.034) ng/mL Total Protein 8.1 (6.3-8.2) g/dL Albumin 4.9 (3.5-5.0) g/dL Globulin 3.2 (1.7-4.1) g/dL Albumin/Globulin Ratio 1.5 (1.0-2.8) Lipase 73 (23-300) U/L // Range/Units 06:40 WBC (4.5-11.0) X10^3/uL RBC (4.0-5.2) X10^6/uL Hgb (12.0-16.0) g/dL Hct (36-46) % MCV (80-100) fL MCH (26-34) PG MCHC (30-36) % RDW (11.6-14.8) % Plt Count (150-400) X10^3/uL Total Counted Seg Neutrophils % (38-70) % Band Neutrophils % (3-7) % Lymphocytes % (Manual) (25-45) % Atypical Lymphs % ( - 0) % Monocytes % (Manual) (2-11) % Neutrophils # (Manual) (2094-9423) /uL RBC Morphology Sodium (137-145) mmol/L Potassium (3.4-5.1) mmol/L Chloride (98-107) mmol/L Carbon Dioxide (22-32) mmol/L BUN (7-17) mg/dL Creatinine (0.52-1.04) mg/dL Estimated GFR (>60) mL/min BUN/Creatinine Ratio (6-22) Glucose (80-110) mg/dL Calcium (8.4-10.2) mg/dL Total Bilirubin (0.2-1.3) mg/dL AST (14-36) IU/L ALT (9-52) IU/L Alkaline Phosphatase (38-126) U/L Troponin I < 0.012 (0.01-0.034) ng/mL Total Protein (6.3-8.2) g/dL Albumin (3.5-5.0) g/dL Globulin (1.7-4.1) g/dL Albumin/Globulin Ratio (1.0-2.8) Lipase (23-300) U/L Imaging Data US - abdomen: Radiologist's impression: [address] [address] Ultrasound Report Signed Patient: Breanna Armstrong#: [id number] : 2Acct:[id number] Age/Sex: 68 / FDate of Service: 06/05/19 Loc: ED Accession Number: [id number] Procedure: US abdomen limited Ordering Provider: Marcia Ortiz MD PROCEDURE: US ABDOMEN LIMITED INDICATIONS: PAIN TECHNIQUE: Real-time focused scanning was performed of the right upper quadrant of the abdomen, with image documentation. COMPARISON: None. FINDINGS: Numerous small mobile gallstones. There is no gallbladder wall thickening or fluid around the gallbladder or sonographic Haile sign. There are 2 focal echogenic lesions in the liver, likely representing hemangiomas. In the right lobe is a 2.7 cm maximum diameter lesion. In the left lobe is a 2.1 x 1.6 x 3.0 cm echogenic lesion. Visualized portions of the pancreas are unremarkable. Common bile duct is nondilated, measuring 5 mm. IMPRESSION: 1. Cholelithiasis. 2. Probable liver hemangiomata. Dictated by: Venancio Gary M.D. on 06/05/2019 at 8:24 Approved by: Venancio Gary M.D. on 06/05/2019 at 8:26 CT scan - abdomen: Radiologist's impression: [address] [address] [address] Scan Report Signed Patient: Breanna Armstrong#: [id number] : 2Acct:[id number] Age/Sex: 68 / FDate of Service: 06/05/19 Loc: ED Accession Number: [id number] Procedure: CT abdomen pelvis w con Ordering Provider: Roverto Díaz D.O. PROCEDURE: CT ABDOMEN PELVIS W CON INDICATIONS: epigastric pain, right TECHNIQUE: After the administration of intravenous contrast, 5 mm thick sections acquired from the diaphragm to the symphysis. 5 mm coronal and sagittal reformats were acquired. For radiation dose reduction, the following was used: automated exposure control, adjustment of mA and/or kV according to patient size. COMPARISON: [facility], , ABDOMEN LIMITED, 06/05/2019, 7:08. FINDINGS: Image quality: Excellent. ABDOMEN: Lung bases: Lung bases are clear. Heart size is normal. Small hiatal hernia. Distal esophageal wall thickening may represent esophagitis. Solid organs: The 2 lesions described on the ultrasound and liver have peripheral nodular enhancement and are consistent with hemangiomata. The left lobe liver lesion measures approximately 3 cm in maximum diameter. The right lobe liver lesion measures approximately 3.2 cm in diameter. There are other tiny low-density lesions which are consistent with cysts versus hemangiomata. Gallbladder contains tiny stones. There is no gallbladder wall thickening or fluid around the gallbladder.. Biliary system is non dilated. Pancreas enhances normally. Spleen is normal in size and enhancement. No adrenal nodules. Kidneys demonstrate normal size and enhancement, without hydronephrosis. Peritoneum and bowel: Bowel loops demonstrate normal wall thickness and caliber. No free fluid or air. Nodes and vessels: No retroperitoneal or mesenteric adenopathy by size criteria. Aorta and inferior vena cava are normal in size. Miscellaneous: No ventral hernias. PELVIS: Genitourinary: Bladder wall thickness is normal. No hysterectomy. Miscellaneous: No inguinal hernias or adenopathy. Bones: No suspicious bony lesions. No vertebral body compression fractures. IMPRESSION: 1. The 2 lesions seen on previous ultrasound are hemangiomata. 2. Tiny gallstones. 3. Small hiatal hernia. 4. Question distal esophagitis. 5. Remote history Dictated by: Venancio Gary M.D. on 06/05/2019 at 8:32 Approved by: Venancio Gary M.D. on 06/05/2019 at 8:36 ECG Data Attestation: I personally reviewed and interpreted this ECG as follows: Prior ECG tracings: not available for review Interpretation: Sinus rhythm Ventricular rate is 69 Left axis deviation Normal QRS Nonspecific ST T wave changes MDM Narrative Medical decision making narrative: Received turned over from night provider. Right upper quadrant ultrasound does show cholelithiasis but no signs of cholecystitis. She was still quite a bit nauseous and pain after the medications. A CT scan was ordered which just shows inflammation the distal esophagus. No other signs of acute pathology. She was given another dose of pain medications which he states completely resolved her symptoms. No indication for antibiotics. No indication for surgical referral. We did discuss return precautions and follow-up instructions. Will send home with symptom treatment. Patient and expressed understanding and agreement with plan. Discharge Plan Departure Patient Disposition: Home Clinical Impression: Abdominal pain Qualifiers: Abdominal location: epigastric Qualified Code(s): R10.13 - Epigastric pain Nausea and vomiting Qualifiers: Vomiting type: unspecified Vomiting Intractability: unspecified Qualified Code(s): R11.2 - Nausea with vomiting, unspecified Discharge Date/Time: 06/05/19 09:49 Interventions: ED Discharge Assessment Last Done: 06/05/19 09:48 Instructions: Acute Abdominal Pain Activity Restrictions/Additional Instructions: I do recommend that today you contact your primary provider to discuss the referrals and indications to have a endoscopy and colonoscopy. Take the medications as directed. Increase your fluid intake and eat a bland diet for the next couple days. Return to the emergency department for any new or worsening symptoms Prescriptions: New tramadol [Ultram] 50 mg tablet 50 mg PO BID PRN (Reason: pain) Qty: 14 RF: 0 ranitidine HCl [Zantac] 150 mg tablet 150 mg PO BID PRN (Reason: abdominal discomfort) Qty: 60 RF: 0 ondansetron 4 mg tablet,disintegrating 4 mg PO Q6H PRN (Reason: nausea and vomiting) Qty: 20 RF: 0
[2019-06-05 07:05] LABS: Alanine Aminotransferase 18 IU/L (9-52); Albumin 4.9 g/dL (3.5-5.0); Albumin Globulin Ratio 1.5 (1.0-2.8); Alkaline Phosphatase 68 U/L (38-126); Aspartate Aminotransferase 24 IU/L (14-36); Bilirubin Total 0.4 mg/dL (0.2-1.3); Blood Urea Nitrogen 12 mg/dL (7-17); Calcium 9.6 mg/dL (8.4-10.2); Carbon Dioxide 23 mmol/L (22-32); Chloride 98 mmol/L (98-107); Estimated Glomerular Filt Rate > 60.0 mL/min (>60); Globulin 3.2 g/dL (1.7-4.1); Glucose 220 mg/dL (80-110); HEMOLYSIS 17 (0-50); Potassium 3.6 mmol/L (3.4-5.1); Sodium 139 mmol/L (137-145); Total Protein 8.1 g/dL (6.3-8.2)
[2019-06-05] MEDS: HYDROMORPHONE 0.5 MG INJ IV (07:07)
[2019-06-05 07:10] VITALS: PULSE 76; RESP 22; O2SAT 100
[2019-06-05 07:15] LABS: Lipase 73 U/L (23-300)
[2019-06-05 07:19] LABS: Neutrophils Absolute Manual 6240 /uL (3000-5900); RBC Morphology Normal Morphology; Total Cells Counted 100
--- NOTE | 2019-06-05 07:52 | DI.CT.S_ITS ---
PROCEDURE: CT ABDOMEN PELVIS W CON INDICATIONS: epigastric pain, right TECHNIQUE: After the administration of intravenous contrast, 5 mm thick sections acquired from the diaphragm to the symphysis. 5 mm coronal and sagittal reformats were acquired. For radiation dose reduction, the following was used: automated exposure control, adjustment of mA and/or kV according to patient size. COMPARISON: [facility], , [place] ABDOMEN LIMITED, 06/05/2019, 7:08. FINDINGS: Image quality: Excellent. ABDOMEN: Lung bases: Lung bases are clear. Heart size is normal. Small hiatal hernia. Distal esophageal wall thickening may represent esophagitis. Solid organs: The 2 lesions described on the ultrasound and liver have peripheral nodular enhancement and are consistent with hemangiomata. The left lobe liver lesion measures approximately 3 cm in maximum diameter. The right lobe liver lesion measures approximately 3.2 cm in diameter. There are other tiny low-density lesions which are consistent with cysts versus hemangiomata. Gallbladder contains tiny stones. There is no gallbladder wall thickening or fluid around the gallbladder.. Biliary system is non dilated. Pancreas enhances normally. Spleen is normal in size and enhancement. No adrenal nodules. Kidneys demonstrate normal size and enhancement, without hydronephrosis. Peritoneum and bowel: Bowel loops demonstrate normal wall thickness and caliber. No free fluid or air. Nodes and vessels: No retroperitoneal or mesenteric adenopathy by size criteria. Aorta and inferior vena cava are normal in size. Miscellaneous: No ventral hernias. PELVIS: Genitourinary: Bladder wall thickness is normal. No hysterectomy. Miscellaneous: No inguinal hernias or adenopathy. Bones: No suspicious bony lesions. No vertebral body compression fractures. IMPRESSION: 1. The 2 lesions seen on previous ultrasound are hemangiomata. 2. Tiny gallstones. 3. Small hiatal hernia. 4. Question distal esophagitis. 5. Remote history Dictated by: Venancio Gary M.D. on 06/05/2019 at 8:32 Approved by: Venancio Gary M.D. on 06/05/2019 at 8:36
[2019-06-05] MEDS: PANTOPRAZOLE 40 MG VIAL IV (07:53)
[2019-06-05] MEDS: METOCLOPRAMIDE 10 MG/2 ML INJ IV (07:53)
[2019-06-05 08:22] LABS: Troponin I < 0.012 ng/mL (0.01-0.034)
[2019-06-05] MEDS: KETOROLAC 60 MG/2 ML VIAL 15 MG IV (08:23)
[2019-06-05] MEDS: HYDROMORPHONE 1 MG INJ IV (09:11)
[2019-06-05 09:48] VITALS: BP 131/74; PULSE 63; RESP 12; O2SAT 100
== END 2019-06-05 09:49 | disposition home or self-care (01) ==
PROVIDERS: Emergency Medicine; Emergency Provider Emergency Medicine
DX: R10.13 Epigastric pain (principal); R11.2 Nausea with vomiting, unspecified
CPT/HCPCS: 36591; 74177; 76705; 80053; 83690; 84484; 85025; 93005; 93010; 96361; 96374; 96375; 96376; 99283; 99285; C9113; J1170; J1885; J2405; J2765; Q9967

== ENCOUNTER 2019-07-22 00:25 | Emergency (ER) | payer MEDICARE, SELFPAY ==
[2019-07-22] VITALS (11 sets, daily range): BP systolic 86–115; BP diastolic 53–70; PULSE 73–78; RESP 15–16; TEMP 36.2–36.4; O2SAT 97–100; BMI 24.7
[2019-07-22] MEDS: SODIUM CHLORIDE 0.9% 1,000 ML 150 ML IV (00:55)
[2019-07-22 00:56] LABS: Add Manual Diff / Slide Review NO; Basophils Absolute Auto 0 /uL (0-100); Basophils Percent Auto 0.2 % (0-2); Eosinophils Absolute Auto 0 /uL (0-450); Eosinophils Percent Auto 0.1 % (2-4); Hematocrit 40.9 % (36-46); Lymphocytes Absolute Auto 800 /uL (1100-4500); Lymphocytes Percent Auto 3.7 % (25-40); Mean Corpuscular HGB Conc 34.2 % (30-36); Mean Corpuscular Hemoglobin 33.1 PG (26-34); Mean Corpuscular Volume 96.7 fL (80-100); Monocytes Absolute Auto 2100 /uL (0-900); Monocytes Percent Auto 9.4 % (3-14); Neutrophils Absolute Auto 19600 /uL (1500-7000); Neutrophils Percent Auto 86.6 % (50-75); Platelet Count 282 X10^3/uL (150-400); Red Blood Cell Count 4.22 X10^6/uL (4.0-5.2); Red Cell Distribution Width 12.9 % (11.6-14.8); White Blood Cell Count 22.6 X10^3/uL (4.5-11.0)
[2019-07-22 00:59] LABS: INR 1.1 (0.9-1.3); Prothrombin Time 12.9 SECONDS (10.1-12.7)
--- NOTE | 2019-07-22 01:06 | ED.ABDPAIN ---
HPI - Abdominal Pain General Chief Complaint: Abdominal Pain Stated Complaint: pain in mid abdomen area, nausea/head pain Time Seen by Provider: 07/22/19 00:25 Source: patient Mode of arrival: Ambulatory Limitations: no limitations History of Present Illness HPI narrative: 69F smoker, heavy drinker with type 2 diabetes presents with the chief complaint of gradually worsening generalized and more specifically epigastric pain over the past few weeks. She was seen and evaluated about 1 month ago under similar circumstances with a relatively benign evaluation and improvement after therapies administered. She states that over the past few days she has had increasing weakness, trouble keeping food down as anything she ingests causes intense nausea and pain. She states her pain is worse when she eats or drinks and when she moves with improvement when she rests. She denies any diarrhea and has in fact had some episodes of constipation. She denies dysuria, frequency or urgency Related Data Home Medications Medication Instructions Recorded Confirmed metformin 1,000 mg PO BID 07/22/19 07/22/19 paroxetine mesylate 30 mg PO DAILY 07/22/19 07/22/19 Allergies Allergy/AdvReac Type Severity Reaction Status Date / Time No Known Drug Allergies Allergy Verified 07/22/19 00:44 Review of Systems Constitutional Constitutional: Denies chills, Denies fatigue, Denies fever(s), Denies frequent falls, Denies lethargy and Denies weakness Eyes Eyes: Denies change in vision, Denies eye discharge, Denies irritation and Denies loss of vision ENT Ears, Nose, Mouth, and Throat: Denies change in voice, Denies dizziness, Denies neck pain, Denies sore throat and Denies throat swelling Cardiovascular Cardiovascular: Denies chest pain, Denies irregular heart rhythm, Denies lightheadedness, Denies palpitations, Denies dyspnea, Denies dyspnea on exertion and Denies orthopnea Respiratory Respiratory: Denies cough, Denies dyspnea, Denies dyspnea on exertion and Denies wheezing Gastrointestinal Gastrointestinal: Reports abdominal pain, Denies change in bowel habits, Reports cramping, Denies diarrhea, Reports nausea and Denies vomiting Genitourinary Genitourinary: Denies hematuria, Denies flank pain, Denies urinary incontinence and Denies urinary urgency Musculoskeletal Musculoskeletal: Denies back pain, Denies muscle weakness, Denies neck pain, Denies numbness and Denies tingling Integumentary/Breasts Skin/Breast: Denies pruritus, Denies erythema, Denies rash and Denies wounds Neurologic Neurologic: Denies behavioral changes, Denies confusion, Denies dizziness, Denies frequent falls, Denies loss of vision, Denies numbness, Denies tingling and Denies weakness Psychiatric Psychiatric: Denies anxiety, Denies behavioral changes, Denies confusion, Denies depression, Denies homicidal ideation and Denies suicidal ideation Endocrine Endocrine: Denies fatigue, Denies flushing and Denies palpitations Hematologic/Lymphatic Hematologic/Lymphatic: Denies easy bruising Allergic/Immunologic Allergic/Immunologic: Denies urticaria, Denies throat swelling and Denies wheezing PFSH Medical History Anxiety (Acute) Surgical History No pertinent past surgical history (Acute) Social History Smoking Status: Former smoker Social History Smoking Status: Former smoker Exam Narrative Exam Narrative: GENERAL: [69] year old patient appears older than stated age, a bit disheveled and unwell HEAD: Atraumatic. Normocephalic. EYES: Pupils equal round and reactive. Extraocular motions intact. No scleral icterus. No injection or drainage. ENT: Poor dentition throughout, dry mucous membranes Nose without bleeding, purulent drainage. Throat without erythema, tonsillar hypertrophy or exudate. Airway patent. NECK: Trachea midline. Non tender CARDIOVASCULAR: Regular rate and rhythm without murmurs, gallops, or rubs. RESPIRATORY: Clear to auscultation. Breath sounds equal bilaterally. No wheezes, rales, or rhonchi. GASTROINTESTINAL: Abdomen soft, generally tender, more so in the epigastrium, nondistended. EXTREMITIES: No edema or joint tenderness. BACK: Nontender without deformity or crepitance. No flank tenderness. NEURO: AOx3. SKIN: No rash or erythema of visible areas Initial Vital Signs Initial Vital Signs: Vital Signs Temperature 97.1 F L 07/22/19 00:44 Pulse Rate 78 07/22/19 00:44 Respiratory Rate 15 07/22/19 00:44 Blood Pressure 115/69 07/22/19 00:44 Pulse Oximetry 97 07/22/19 00:44 Course Orders Ordered: ED Orders 07/22/19 EKG-12 Lead Routine 07/22/19 00:44 Complete Blood Count AUTO DIFF Stat Comprehensive Metabolic Panel Stat Lactate (Lactic Acid) Stat Lipase Stat Prothrombin Time INR Stat 07/22/19 01:14 US abdomen limited Stat 07/22/19 02:07 CT abdomen pelvis w con Stat 07/22/19 03:35 Venous Blood Gas Stat 07/22/19 04:01 Ictotest Urine Stat Urinalysis and Microscopic Stat Urine Culture Stat Sodium Chloride (Normal Saline 0.9%) 1,000 mls @ 150 mls/hr IV CONT WILLIAM Last Infusion: 07/22/19 04:09 Dose: 0 mls/hr Documented by: Admin: 07/22/19 00:55 Dose: 150 mls/hr Documented by: SOUTH Lactated Ringer's (Lactated Ringers) 1,000 mls @ 250 mls/hr IV CONT WILLIAM Last Admin: 07/22/19 06:36 Dose: 250 mls/hr Documented by: SOUTH Ondansetron HCl (Zofran) 4 mg IV Q4HR PRN PRN Reason: Nausea And Vomiting Last Admin: 07/22/19 01:32 Dose: 4 mg Documented by: XAVIER Discontinued Medications Hydromorphone HCl (Dilaudid) 0.5 mg IV NOW ONE Stop: 07/22/19 01:15 Last Admin: 07/22/19 01:32 Dose: 0.5 mg Documented by: XAVIER Ceftriaxone Sodium/Dextrose (Rocephin) 1 gm in 50 mls @ 100 mls/hr IV NOW ONE Stop: 07/22/19 04:13 Last Infusion: 07/22/19 04:17 Dose: 0 mls/hr Documented by: Admin: 07/22/19 04:17 Dose: 100 mls/hr Documented by: SOUTH Sodium Chloride (Normal Saline 0.9%) 1,000 mls @ 1,000 mls/hr IV BOLUS ONE Stop: 07/22/19 05:07 Last Infusion: 07/22/19 05:39 Dose: 0 mls/hr Documented by: Admin: 07/22/19 04:18 Dose: 1,000 mls/hr Documented by: SOUTH Pantoprazole Sodium (Protonix) 40 mg IV NOW ONE Stop: 07/22/19 01:15 Last Admin: 07/22/19 01:32 Dose: 40 mg Documented by: STEVENSONTO Consultations Consultation #1: call to urology to discuss CT findings. He recommends transfer for urology intervention, possible nephrostomy with IR. Time: 04:18 Vital Signs Vital signs: Vital Signs - 8 hr 07/22/19 00:44 07/22/19 01:00 07/22/19 02:00 Temperature 97.1 F L Pulse Rate 78 73 74 Respiratory Rate 15 16 16 Blood Pressure 115/69 Blood Pressure [Left Arm] 115/69 103/70 Pulse Oximetry 97 99 100 07/22/19 03:24 07/22/19 03:26 07/22/19 03:30 Temperature 97.6 F Pulse Rate 74 75 76 Respiratory Rate 16 16 15 Blood Pressure Blood Pressure [Left Arm] 86/60 L 88/53 L 89/58 L Pulse Oximetry 100 99 99 07/22/19 03:34 07/22/19 04:00 07/22/19 04:30 Temperature Pulse Rate 76 75 76 Respiratory Rate 16 15 15 Blood Pressure Blood Pressure [Left Arm] 88/61 L 102/62 92/55 L Pulse Oximetry 100 100 97 07/22/19 06:00 07/22/19 06:30 Temperature Pulse Rate 74 77 Respiratory Rate 15 16 Blood Pressure Blood Pressure [Left Arm] 97/65 96/68 Pulse Oximetry 97 99 MDM - Abdominal Pain Lab Data Result diagrams: 07/22/19 00:44 07/22/19 00:44 Labs: Lab Results 07/22/19 07/22/19 07/22/19 Range/Units 00:44 00:44 00:44 WBC 22.6 H (4.5-11.0) X10^3/uL RBC 4.22 (4.0-5.2) X10^6/uL Hgb 14.0 (12.0-16.0) g/dL Hct 40.9 (36-46) % MCV 96.7 (80-100) fL MCH 33.1 (26-34) PG MCHC 34.2 (30-36) % RDW 12.9 (11.6-14.8) % Plt Count 282 (150-400) X10^3/uL Neut % (Auto) 86.6 H (50-75) % Lymph % (Auto) 3.7 L (25-40) % [place] % (Auto) 9.4 (3-14) % Eos % (Auto) 0.1 L (2-4) % Baso % (Auto) 0.2 (0-2) % Neut # (Auto) 23242 H (2365-5700) /uL Lymph # (Auto) 800 L (2505-3090) /uL [place] # (Auto) 2100 H (0-900) /uL Eos # (Auto) 0 (0-450) /uL Baso # (Auto) 0 (0-100) /uL PT 12.9 H (10.1-12.7) SECONDS INR 1.1 (0.9-1.3) VBG pH (7.33-7.43) VBG pCO2 (45-50) mmHg VBG pO2 (35-45) mmHg VBG HCO3 (23-28) mmol/L VBG Total CO2 (24-29) mmol/L VBG O2 Saturation (70-75) % VBG Base Excess (0-4) mmol/L Sodium 129 L (137-145) mmol/L Potassium 3.6 (3.4-5.1) mmol/L Chloride 89 L (98-107) mmol/L Carbon Dioxide 21 L (22-32) mmol/L BUN 54 H (7-17) mg/dL Creatinine 1.60 H (0.52-1.04) mg/dL Estimated GFR 32.2 L (>60) mL/min BUN/Creatinine Ratio 33.8 H (6-22) Glucose 339 H (80-110) mg/dL Lactate (0.7-2.1) mmol/L Calcium 8.7 (8.4-10.2) mg/dL Total Bilirubin 0.5 (0.2-1.3) mg/dL AST 34 (14-36) IU/L ALT 22 (9-52) IU/L Alkaline Phosphatase 114 (38-126) U/L Total Protein 6.8 (6.3-8.2) g/dL Albumin 3.5 (3.5-5.0) g/dL Globulin 3.3 (1.7-4.1) g/dL Albumin/Globulin Ratio 1.1 (1.0-2.8) Lipase 41 (23-300) U/L Urine Color Urine Appearance Urine pH (4.5-8.0) Ur Specific [place] (1.000-1.035) Urine Protein (Negative) Urine Glucose (UA) (Negative) g/dL Urine Ketones (NEGATIVE) Urine Occult Blood (Negative) Urine Nitrate (Negative) Urine Bilirubin (NEGATIVE) Urine Ictotest (Negative) Urine Urobilinogen (0.2) E.U./dL Ur Leukocyte Esterase (NEGATIVE) Urine RBC (0-5/HPF) Urine WBC (0-5/HPF) Urine Bacteria (None) Ur Culture Indicated? 07/22/19 07/22/19 07/22/19 Range/Units 00:44 03:35 04:01 WBC (4.5-11.0) X10^3/uL RBC (4.0-5.2) X10^6/uL Hgb (12.0-16.0) g/dL Hct (36-46) % MCV (80-100) fL MCH (26-34) PG MCHC (30-36) % RDW (11.6-14.8) % Plt Count (150-400) X10^3/uL Neut % (Auto) (50-75) % Lymph % (Auto) (25-40) % [place] % (Auto) (3-14) % Eos % (Auto) (2-4) % Baso % (Auto) (0-2) % Neut # (Auto) (8036-8227) /uL Lymph # (Auto) (3396-1549) /uL [place] # (Auto) (0-900) /uL Eos # (Auto) (0-450) /uL Baso # (Auto) (0-100) /uL PT (10.1-12.7) SECONDS INR (0.9-1.3) VBG pH 7.27 L (7.33-7.43) VBG pCO2 44.3 L (45-50) mmHg VBG pO2 22 L (35-45) mmHg VBG HCO3 20 L (23-28) mmol/L VBG Total CO2 22 L (24-29) mmol/L VBG O2 Saturation 30 L (70-75) % VBG Base Excess -7.0 L (0-4) mmol/L Sodium (137-145) mmol/L Potassium (3.4-5.1) mmol/L Chloride (98-107) mmol/L Carbon Dioxide (22-32) mmol/L BUN (7-17) mg/dL Creatinine (0.52-1.04) mg/dL Estimated GFR (>60) mL/min BUN/Creatinine Ratio (6-22) Glucose (80-110) mg/dL Lactate 1.7 (0.7-2.1) mmol/L Calcium (8.4-10.2) mg/dL Total Bilirubin (0.2-1.3) mg/dL AST (14-36) IU/L ALT (9-52) IU/L Alkaline Phosphatase (38-126) U/L Total Protein (6.3-8.2) g/dL Albumin (3.5-5.0) g/dL Globulin (1.7-4.1) g/dL Albumin/Globulin Ratio (1.0-2.8) Lipase (23-300) U/L Urine Color Yellow Urine Appearance Slightly cloudy Urine pH 5.0 (4.5-8.0) Ur Specific [place] <=1.005 (1.000-1.035) Urine Protein 1+ H (Negative) Urine Glucose (UA) Negative (Negative) g/dL Urine Ketones 1+ H (NEGATIVE) Urine Occult Blood 1+ H (Negative) Urine Nitrate Negative (Negative) Urine Bilirubin 1+ H (NEGATIVE) Urine Ictotest Negative (Negative) Urine Urobilinogen 0.2 (0.2) E.U./dL Ur Leukocyte Esterase Trace H (NEGATIVE) Urine RBC None seen (0-5/HPF) Urine WBC 1-5/hpf (0-5/HPF) Urine Bacteria Many (>30) H (None) Ur Culture Indicated? Specimen cultured Point of care testing: Point of Care Testing Glucose POC [address] scan - abdomen: Radiologist's impression: Right Pyelonephritis thickened urinary bladder wall thickening of ascending colon Critical Care Time Critical Care Time Critical Care Time: Yes Total Critical Care Time: 35 Attestation: The high probability of a clinically significant, sudden or life threatening deterioration of the [renal] system(s) required my full and direct attention, intervention and personal management. The aggregate critical care time was [35] minutes. This time is in addition to time spent performing reported procedures but includes the following: [x] Data Review and interpretation [x] Patient assessment and monitoring of vital signs [x] Documentation [x] Medication orders and management Discharge Plan Departure Patient Disposition: [facility] Clinical Impression: Acute unilateral obstructive uropathy Sepsis Qualifiers: Sepsis type: sepsis due to unspecified organism Sepsis acute organ dysfunction status: with acute organ dysfunction Severe sepsis acute organ dysfunction type: acute renal failure Acute renal failure type: unspecified Severe sepsis shock status: without septic shock Qualified Code(s): A41.9 - Sepsis, unspecified organism Acute renal failure Qualifiers: Acute renal failure type: unspecified Qualified Code(s): N17.9 - Acute kidney failure, unspecified Prescriptions: No Action metformin 1,000 mg Tablet 1,000 mg PO BID RF: 0 paroxetine mesylate 30 mg Tablet 30 mg PO DAILY RF: 0
--- NOTE | 2019-07-22 01:14 | DI.US.S_ITS ---
PROCEDURE: US ABDOMEN LIMITED INDICATIONS: EPIGASTRIC PAIN TECHNIQUE: Real-time focused scanning was performed of the abdomen, with image documentation. COMPARISON: [facility], US, US ABDOMEN LIMITED, 06/05/2019, 7:08. [facility], CT, CT ABDOMEN PELVIS W CON, 06/05/2019, 7:57. FINDINGS: Liver is normal in size. Echogenic lesions are noted in the posterior aspect of the right lobe liver which measures 1.8 x 1.8 x 3.0 cm and in the lateral margin of the left lobe liver that measures 2.3 x 1.7 x 2.6 cm. Hepatic lesions demonstrate imaging characteristics compatible with hemangiomas by prior CT scan obtained 06/05/19.. Multiple small nonobstructing stones noted in the gallbladder. No gallbladder wall thickening with gallbladder wall measuring 1.6 mm. No pericholecystic fluid. No sonographic Haile's sign. Head and body the pancreas are sonographically normal. Tail of pancreas is obscured by bowel gas and cannot be evaluated. IMPRESSION: Cholelithiasis without sonographic evidence of cholecystitis. If there is continued clinical concern for cholecystitis, nuclear medicine HIDA scan should be considered for further evaluation Dictated by: Genevieve Piedra MD, PhD on 07/22/2019 at 8:34 Approved by: Genevieve iPedra MD, PhD on 07/22/2019 at 8:38
[2019-07-22 01:24] LABS: Lactate (Lactic Acid) 1.7 mmol/L (0.7-2.1)
[2019-07-22 01:25] LABS: Alanine Aminotransferase 22 IU/L (9-52); Albumin 3.5 g/dL (3.5-5.0); Albumin Globulin Ratio 1.1 (1.0-2.8); Alkaline Phosphatase 114 U/L (38-126); Aspartate Aminotransferase 34 IU/L (14-36); BUN Creatinine Ratio 33.8 (6-22); Bilirubin Total 0.5 mg/dL (0.2-1.3); Blood Urea Nitrogen 54 mg/dL (7-17); Calcium 8.7 mg/dL (8.4-10.2); Carbon Dioxide 21 mmol/L (22-32); Chloride 89 mmol/L (98-107); Estimated Glomerular Filt Rate 32.2 mL/min (>60); Globulin 3.3 g/dL (1.7-4.1); Glucose 339 mg/dL (80-110); HEMOLYSIS < 15 (0-50); Lipase 41 U/L (23-300); Potassium 3.6 mmol/L (3.4-5.1); Sodium 129 mmol/L (137-145); Total Protein 6.8 g/dL (6.3-8.2)
[2019-07-22] MEDS: PANTOPRAZOLE 40 MG VIAL IV (01:32)
[2019-07-22] MEDS: HYDROMORPHONE 0.5 MG INJ IV (01:32)
[2019-07-22] MEDS: ONDANSETRON 4 MG/2 ML INJ IV (01:32)
--- NOTE | 2019-07-22 02:07 | DI.CT.S_ITS ---
PROCEDURE: CT ABDOMEN PELVIS W CON INDICATIONS: severe abdominal pain, worse than when seen 1 month ago TECHNIQUE: After the administration of intravenous contrast, 5 mm thick sections acquired from the diaphragm to the symphysis. 5 mm coronal and sagittal reformats were acquired. For radiation dose reduction, the following was used: automated exposure control, adjustment of mA and/or kV according to patient size. COMPARISON: [facility], CT, CT ABDOMEN PELVIS W CON, 06/05/2019, 7:57. FINDINGS: Image quality: Excellent. ABDOMEN: Lung bases: Lung bases are clear. Heart size is normal. There is a small hiatal hernia. Solid organs: Liver is normal in size and enhancement. Superior left and right hepatic hemangiomas are redemonstrated and appear unchanged when compared with the CT dated 06/05/19. Probable small hepatic cyst is redemonstrated at the inferior right hepatic lobe. Multiple subcentimeter calculi are layered in the gallbladder fundus. No gallbladder wall thickening or pericholecystic fluid. Biliary system is non dilated. Pancreas enhances normally. Spleen is normal in size and enhancement. No adrenal nodules. The left kidney demonstrates normal size and enhancement. The right kidney is enlarged with multiple striated nephrograms. There is moderate right perinephric and periureteral fat stranding. No right hydronephrosis or hydroureter. Peritoneum and bowel: Bowel loops demonstrate normal wall thickness and caliber. The appendix is thin walled and gas filled. No free fluid or air. Nodes and vessels: No retroperitoneal or mesenteric adenopathy by size criteria. Aorta and inferior vena cava are normal in size. There are scattered atheromatous calcifications throughout the aorta and iliac arteries bilaterally. Miscellaneous: No ventral hernias. PELVIS: Genitourinary: There is mild thickening of the anterior bladder wall. No bladder calculi. Miscellaneous: No inguinal hernias or adenopathy. Bones: No suspicious bony lesions. No vertebral body compression fractures. 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 IMPRESSION: 1. Findings consistent with acute right pyelonephritis. No hydronephrosis or hydroureter. No obstructing calculi visualized. 2. Mild wall thickening of the anterior bladder. 3. Normal appendix. 4. Stable hepatic hemangiomas. These findings are concurrent with the overnight interpretation. Dictated by: Rebecca Bailey M.D. on 07/22/2019 at 8:38 Approved by: Rebecca Bailey M.D. on 07/22/2019 at 8:45
[2019-07-22 04:10] LABS: RBC Urine None Seen (0-5/HPF)
[2019-07-22 04:11] LABS: Bilirubin Urine UA 1+ (NEGATIVE); Color Urine UA YELLOW; Glucose Urine UA NEGATIVE (Negative); Ketones Urine UA 1+ (NEGATIVE); Leukocyte Esterase Urine UA TRACE (NEGATIVE); Nitrite Urine UA NEGATIVE (Negative); Occult Blood Urine UA 1+ (Negative); Protein Urine UA 1+ (Negative); Specific Gravity Urine UA <=1.005 (1.000-1.035); Urobilinogen Urine UA 0.2 E.U./dL (0.2)
[2019-07-22 04:12] LABS: HCO3 VBG 20 mmol/L (23-28); Oxygen Saturation VBG 30 % (70-75); PCO2 VBG 44.3 mmHg (45-50); PO2 VBG 22 mmHg (35-45); Total CO2 VBG 22 mmol/L (24-29); pH VBG 7.27 (7.33-7.43)
[2019-07-22 04:12] LABS: Appearance Urine UA Slightly Cloudy
[2019-07-22] MEDS: CEFTRIAXONE 1 GM/50 ML FROZ.PIGGY IV (04:17)
[2019-07-22] MEDS: SODIUM CHLORIDE 0.9% 1,000 ML 1000 ML IV (04:18)
[2019-07-22 04:21] LABS: Bacteria Urine Many (>30); Culture Indicated Urine Specimen Cultured; Ictotest Urine Negative (Negative); WBC Urine 1-5/HPF (0-5/HPF)
[2019-07-22] MEDS: LACTATED RINGERS 1,000 ML 250 ML IV (06:36)
== END 2019-07-22 07:10 | disposition short-term general hospital (02) ==
PROVIDERS: Emergency Provider Emergency Medicine
DX: N13.8 Other obstructive and reflux uropathy (principal); A41.9 Sepsis, unspecified organism; N17.9 Acute kidney failure, unspecified; E11.9 Type 2 diabetes mellitus without complications
CPT/HCPCS: 36415; 74177; 76705; 80053; 81001; 82805; 82962; 83605; 83690; 85025; 85610; 87077; 87086; 87186; 93005; 96361; 96374; 96375; 99285; 99291; C9113; J1170; J2405; Q9967